=== PATIENT | female | born 1990 | race African-American/Black ===

== ENCOUNTER 2016-05-28 14:13 | Emergency (ER) | payer OTHER ==
[~2016-05-28 14:13] MED LIST: NITROFURANTOIN100 M2 ORAL; RANITIDINE HCL150 MG ORAL; ZOFRAN ODT4 MG ORAL
--- NOTE | 2016-05-28 15:08 | Emergency Room Report ---
History of Present Illness General Chief Complaint: To Be Triaged Present Illness HPI Left without being seen prior to triage. Allergies: Coded Allergies: No Known Allergies (Unverified , 12/26/15) Medical Decision Making PA Attestation Dr. Alvarado is my supervising Physician whom patient management has been discussed with. ER Course Left without being seen prior to triage. Disposition: LEFT W/OUT BEING SEEN Referrals: NOT CHOSEN [facility]/,REFERRING (PCP) Zuri Silva May 28, 2016 15:08
[2016-05-29] MEDS ORDERED: NKM (13:37)
[2016-05-29] MEDS ORDERED: VIBRAMYCIN100 MG ORAL (14:33)
[2016-05-29] MEDS ORDERED: NITROFURANTOIN100 M2 ORAL (14:43)
== END 2016-05-28 14:45 | disposition left against medical advice (07) ==
LOC: EMR 14:45
DX: Z53.21 Procedure and treatment not carried out due to patient leaving prior to being seen by health care provider (principal)

== ENCOUNTER 2016-05-29 13:28 | Emergency (ER) | payer OTHER ==
[~2016-05-29] VITALS: Ht 160 cm; Wt 59.0 kg
[2016-05-29] MEDS ORDERED: NKM (13:37)
[2016-05-29 14:12] LABS: APPEARANCE,URINE CLEAR; KETONES,URINE NEGATIVE (NEGATIVE); LEUKOCYTE ESTERASE ,URINE 1+ (NEGATIVE); NITRITE,URINE NEGATIVE (NEGATIVE); PH,URINE 6 (4.5-8.0); PROTEIN,URINE NEGATIVE (NEGATIVE); UROBILINOGEN,URINE NORMAL MG/DL (0.0-1.0)
[2016-05-29] MEDS ORDERED: Lidocaine 1% MPF 10mg/ml 5ml ONE (14:13)
--- NOTE | 2016-05-29 14:20 | Emergency Room Report ---
History of Present Illness General Chief Complaint: General Complaint Source: Patient Present Illness HPI 25-year-old female presents emergency department stating that she received notification from [facility] testing and she tested positive for gonorrhea. She states that she needs to obtain treatment. She didn't denies symptoms at this time such as discharge, frequency or urgency. Patient states that she was from her partner and prior to having testing done she had intercourse with her partner was unprotected. denies joint pain. Patient denies abdominal pain, nausea, vomiting, fevers, chills, rashes, or lesions. denies prior hx of STD's. Patient denies . Denies CP, Palpitations, LOC, AMS, dizziness, Changes in Vision, Sensation, paresthesias, or a sudden severe headache. Allergies: Coded Allergies: Beef (Verified Allergy, Unknown, 05/29/16) Uncoded Allergies: CHICKEN (Allergy, Unknown, 05/29/16) PORK (Allergy, Unknown, 05/29/16) Patient History Past Medical History: see triage record Past Surgical History: none Pertinent Family History: none Last Menstrual Period: last week Now: No Immunizations: UTD Reviewed Nursing Documentation: PMH: Agreed, PSxH: Agreed Nursing Documentation-PMH Past Medical History: No Stated History Review of Systems All Other Systems: negative except mentioned in HPI Physical Exam Vital Signs Date Time Temp Pulse Resp B/P Pulse Ox O2 Delivery O2 Flow Rate FiO2 05/29/16 13:33 99.1 79 16 127/73 95 Room Air Sp02 EP Interpretation: reviewed, normal General Appearance: no apparent distress, alert, GCS 15, non-toxic Head: normocephalic, atraumatic Eyes: bilateral eye PERRL, bilateral eye normal inspection ENT: hearing grossly normal, normal pharynx, no angioedema, normal voice Neck: full range of motion, supple/symm/no masses Respiratory: lungs clear, normal breath sounds, speaking full sentences Cardiovascular #1: regular rate, rhythm, no edema Genitourinary: normal inspection, no CVA tenderness Musculoskeletal: back normal, gait/station normal, normal range of motion, non- tender, no calf tenderness Neurologic: alert, oriented x3, responsive, motor strength/tone normal, sensory intact, speech normal Psychiatric: judgement/insight normal, memory normal, mood/affect normal Skin: normal color, no rash, warm/dry, well hydrated Lymphatic: no adenopathy Medical Decision Making PA Attestation Dr. Lombardo is my supervising Physician whom patient management has been discussed with. Diagnostic Impression: Primary Impression: UTI (urinary tract infection) Qualified Codes: N30.00 - Acute cystitis without hematuria Additional Impressions: Venereal disease Gonorrhea contact, untreated ER Course 25-year-old female presents emergency department stating that she received notification from [facility] testing and she tested positive for gonorrhea. She states that she needs to obtain treatment. She didn't denies symptoms at this time such as discharge, frequency or urgency. Patient states that she was from her partner and prior to having testing done she had intercourse with her partner was unprotected. Patient denies abdominal pain, nausea, vomiting, fevers, chills, rashes, or lesions. denies prior hx of STD's. Patient denies . Ddx considered but are not limited to UTi , STI, G & C, trichomonas, Vaginitis , cervicitis,HPV Vital signs: are WNL, pt. is afebrile H&PE are most consistent with positive for venereal disease: Gonorrhea ORDERS: - UA: few bacteria, with WBC's and Leukocyte esterase indicating infection. - Urine Culture G&C: Pending -Urine HCG: Negative ED INTERVENTIONS: -250mg Rocephin IM DISCHARGE: At this time pt. is stable for d/c to home. Will provide printed patient care instructions, and any necessary prescriptions. Care plan and follow up instructions have been discussed with the patient prior to discharge. Labs Test 05/29/16 02:10 05/29/16 13:57 Urine Color Pale yellow Urine Appearance Clear Urine pH 6 (4.5-8.0) Urine Specific Bee 1.015 (1.005-1.035) Urine Protein Negative (NEGATIVE) Urine Glucose (UA) Negative (NEGATIVE) Urine Ketones Negative (NEGATIVE) Urine Occult Blood Negative (NEGATIVE) Urine Nitrite Negative (NEGATIVE) Urine Bilirubin Negative (NEGATIVE) Urine Urobilinogen Normal MG/DL (0.0-1.0) Urine Leukocyte Esterase 1+ (NEGATIVE) Urine RBC 0-2 /HPF (0 - 2) Urine WBC 5-10 /HPF (0 - 2) Urine Squamous Epithelial Cells Few /LPF (NONE/OCC) Urine Bacteria Few /HPF (NONE) Urine HCG, Qualitative Negative Last Vital Signs Date Time Temp Pulse Resp B/P Pulse Ox O2 Delivery O2 Flow Rate FiO2 05/29/16 13:33 99.1 79 16 127/73 95 Room Air Disposition: HOME, SELF-CARE Condition: Stable Scripts Nitrofurantoin Monohyd/M-Cryst* (MACROBID 100 MG*) 100 Mg Capsule 100 MG ORAL EVERY 12 HOURS for 5 Days, #10 CAP Prov: Zuri Silva 05/29/16 Doxycycline Hyclate* (VIBRAMYCIN*) 100 Mg Capsule 100 MG ORAL EVERY 12 HOURS for 7 Days, #14 CAP 0 Refills Prov: Zuri Silva 05/29/16 Referrals: [facility],REFERRING (PCP) Patient Instructions: Gonorrhea, Gonorrhea Testing Additional Instructions: Take medications as directed. Follow up with PCP in 3-5 days Return sooner to ED if new symptoms occur, or current symptoms become worse. - Please note that this Emergency Department Report was dictated using [employer] machin[employer] technology software, occasionally this can lead to erroneous entry secondary to interpretation by the dictation equipment. Zuir Silva May 29, 2016 14:20
[2016-05-29] MEDS ORDERED: VIBRAMYCIN100 MG ORAL (14:33)
[2016-05-29 14:36] LABS: BACTERIA,URINE FEW /HPF; RBC,URINE 0-2 /HPF (0 - 2); SQUAMOUS EPITHELIAL CELL,UR FEW /LPF (NONE/OCC)
[2016-05-29] MEDS ORDERED: NITROFURANTOIN100 M2 ORAL (14:43)
[2016-05-29 14:56] VITALS: BP 127/73
[2016-05-29 14:57] VITALS: BP 127/73
== END 2016-05-29 14:57 | disposition home or self-care (01) ==
LOC: EMR 14:05
DX: Z20.2 Contact with and (suspected) exposure to infections with a predominantly sexual mode of transmission (principal); A64 Unspecified sexually transmitted disease; N30.00 Acute cystitis without hematuria; Z91.018 Allergy to other foods
CPT/HCPCS: 81003; 81025; 87491; 87590; 96372; 99284; J0696